=== PATIENT | male | born 1995 | race Caucasian/White ===

== ENCOUNTER 2022-10-27 16:04 | Observation (INO) ==
[2022-10-27 18:45] LABS: Basophils # 0.2 10*3/uL (0.0-0.2); Basophils % 1.6 % (0.0-0.8); Eosinophils # 0.2 10*3/uL (0.0-0.87); Eosinophils % 1.3 % (0.00-10.9); Hematocrit 45.4 VOL% (42.0-52.0); Hemoglobin 15.8 GM/DL (14.0-18.0); Immature Granulocytes % 0.4 %; Immature Granulocytes Absolute 0.05 #; Lymphocytes % 71.1 % (21.2-54.2); Mean Corpuscular HGB Conc 34.8 GM/DL (32-36); Mean Platelet Volume 9.1 FL (9.6-12.0); Monocytes # 0.9 10*3/uL (0.11-0.8); Monocytes % 6.5 % (1.7-12.7); Neutrophils % 19.1 % (38.7-73.9); Platelet Count 230 T/CUMM (130-400); Red Blood Count 5.47 MC/CUMM (3.8-5.5); Red Cell Distribution Width 12.5 % (9.3-17.3)
[2022-10-27] MEDS ORDERED: SODIUM CHLORIDE 0.9% 1,000 ML IV STA (18:52)
[2022-10-27] MEDS ORDERED: ONDANSETRON 4 MG/2 ML VIAL IV ONE (18:52)
[2022-10-27] MEDS ORDERED: DICYCLOMINE 20 MG/2 ML AMP IM ONE (18:53)
[2022-10-27 19:07] LABS: Alanine Aminotransferase 130 U/L (16-61); Albumin 3.8 G/DL (3.4-5.0); Alkaline Phosphatase 144 U/L (45-117); Aspartate Amino Transferase 63 U/L (0-37); Blood Urea Nitrogen 9 MG/DL (7-18); Calcium 9.2 MG/DL (8.5-10.1); Carbon Dioxide 30 MMOL/L (21-32); Chloride 100 MMOL/L (98-107); Glucose 96 MG/DL (74-106); Osmolality,Calculated 268.1 MOS/KG (273-304); Potassium 4.4 MMOL/L (3.5-5.1); Sodium 135 MMOL/L (136-145); Total Protein 7.3 G/DL (6.4-8.2)
[2022-10-27 19:44] LABS: Anisocytosis Slight; Eosinophils 1 % (0-10); Lymphocytes 65 % (20-55); Microcytosis Slight; Platelet Estimate Adequate; Reactive Lymphocytes Few; Total Cells Counted 100
[2022-10-27] MEDS ORDERED: MORPHINE 2 MG/1 ML SYRINGE IV PRN (20:13)
[2022-10-27] MEDS ORDERED: BISACODYL 5 MG TABLET PO PRN (20:13)
[2022-10-27] MEDS ORDERED: ONDANSETRON 4 MG/2 ML VIAL IV PRN (20:13)
[2022-10-27] MEDS ORDERED: NICOTINE 21 MG/24 HR PATCH TRANSDERM PRN (20:13)
[2022-10-27] MEDS ORDERED: DOCUSATE SODIUM 100 MG CAPSULE PO PRN (20:13)
[2022-10-27] MEDS ORDERED: hydrALAZINE 20 MG/1 ML VIAL IV PRN (20:37)
[2022-10-27] MEDS: SODIUM CHLORIDE 0.9% 1,000 ML IV SCH (22:30)
[2022-10-27] MEDS: PANTOPRAZOLE 40 MG VIAL IV SCH (22:46)
[2022-10-27] MEDS: MEROPENEM 500 MG in SODIUM CHLORIDE 0.9% 100 ML IV SCH (22:47)
[2022-10-28 01:38] LABS: Basophils # 0.2 10*3/uL (0.0-0.2); Basophils % 1.7 % (0.0-0.8); Eosinophils # 0.2 10*3/uL (0.0-0.87); Eosinophils % 1.6 % (0.00-10.9); Hematocrit 42.8 VOL% (42.0-52.0); Hemoglobin 14.9 GM/DL (14.0-18.0); Immature Granulocytes % 0.3 %; Immature Granulocytes Absolute 0.03 #; Lymphocytes # 7.1 10*3/uL (1.4-4.0); Lymphocytes % 68.2 % (21.2-54.2); Mean Corpuscular HGB Conc 34.8 GM/DL (32-36); Mean Corpuscular Volume 83.8 FL (87-102); Mean Platelet Volume 9.2 FL (9.6-12.0); Monocytes # 0.7 10*3/uL (0.11-0.8); Monocytes % 6.9 % (1.7-12.7); Neutrophils % 21.3 % (38.7-73.9); Platelet Count 213 T/CUMM (130-400); Red Blood Count 5.11 MC/CUMM (3.8-5.5); Red Cell Distribution Width 12.6 % (9.3-17.3); White Blood Count 10.4 T/CUMM (4-12)
[2022-10-28 01:47] LABS: Partial Thromboplastin Time 26.7 SECS (23.7-32.9)
[2022-10-28 01:54] LABS: Bilirubin,Direct 0.29 MG/DL (0.0-0.20); Bilirubin,Indirect 0.6 MG/DL (0.0-1.0); Bilirubin,Total 0.9 MG/DL (0.20-1.00)
[2022-10-28 01:56] LABS: Albumin 3.4 G/DL (3.4-5.0); Bilirubin,Total 0.8 MG/DL (0.20-1.00); Calcium 8.8 MG/DL (8.5-10.1); Potassium 3.9 MMOL/L (3.5-5.1); Total Protein 6.4 G/DL (6.4-8.2)
[2022-10-28] MEDS: MEROPENEM 500 MG in SODIUM CHLORIDE 0.9% 100 ML IV SCH ×2 (02:22→08:49)
[2022-10-28 02:32] LABS: Lymphocytes 69 % (20-55); Total Cells Counted 100
[2022-10-28 02:34] LABS: Anisocytosis Slight
[2022-10-28 02:35] LABS: Microcytosis Slight; Platelet Estimate Normal
[2022-10-28 02:36] LABS: Reactive Lymphocytes 1+
[2022-10-28] MEDS: SODIUM CHLORIDE 0.9% 1,000 ML IV SCH ×2 (05:38→11:03)
[2022-10-28 05:43] LABS: Hepatitis B Core IgM Quant 0.16 Index; Hepatitis B Surface Ag Quant < 0.10 Index; Hepatitis B Surface Ag Result Non-Reactive (NonReactive); Hepatitis C Virus Ab Quant 0.02 Index; Hepatitis C Virus Ab Result Non-Reactive (NonReactive)
[2022-10-28] MEDS: PANTOPRAZOLE 40 MG VIAL IV SCH (08:49)
[2022-10-28] MEDS: CETIRIZINE 10 MG TABLET PO SCH (17:06)
[2022-10-28] MEDS: OXcarbazepine 300 MG TABLET PO SCH (20:47)
[2022-10-28] MEDS: busPIRone 15 MG TABLET PO SCH (20:47)
[2022-10-28] MEDS: ACETAMINOPHEN 325 MG TABLET PO PRN (20:48)
[2022-10-29] MEDS: PANTOPRAZOLE 40 MG VIAL IV SCH (08:46)
[2022-10-29] MEDS: OXcarbazepine 300 MG TABLET PO SCH ×2 (08:47→20:05)
[2022-10-29] MEDS: busPIRone 15 MG TABLET PO SCH ×2 (08:48→20:04)
[2022-10-29] MEDS: CETIRIZINE 10 MG TABLET PO SCH (08:48)
[2022-10-29] MEDS: SODIUM CHLORIDE 0.9% 1,000 ML IV SCH ×3 (08:53→23:36)
[2022-10-29 09:12] LABS: Basophils # 0.2 10*3/uL (0.0-0.2); Basophils % 1.4 % (0.0-0.8); Eosinophils # 0.2 10*3/uL (0.0-0.87); Eosinophils % 1.4 % (0.00-10.9); Hematocrit 45.2 VOL% (42.0-52.0); Hemoglobin 15.4 GM/DL (14.0-18.0); Immature Granulocytes % 0.3 %; Immature Granulocytes Absolute 0.03 #; Lymphocytes # 8.9 10*3/uL (1.4-4.0); Lymphocytes % 75.5 % (21.2-54.2); Mean Corpuscular HGB Conc 34.1 GM/DL (32-36); Mean Corpuscular Volume 84.5 FL (87-102); Mean Platelet Volume 9.3 FL (9.6-12.0); Monocytes # 0.7 10*3/uL (0.11-0.8); Monocytes % 5.5 % (1.7-12.7); Neutrophils % 15.9 % (38.7-73.9); Platelet Count 232 T/CUMM (130-400); Red Blood Count 5.35 MC/CUMM (3.8-5.5); Red Cell Distribution Width 12.8 % (9.3-17.3); White Blood Count 11.8 T/CUMM (4-12)
[2022-10-29 09:30] LABS: Albumin 3.3 G/DL (3.4-5.0); Bilirubin,Total 0.8 MG/DL (0.20-1.00); Calcium 8.5 MG/DL (8.5-10.1); Osmolality,Calculated 275.5 MOS/KG (273-304); Potassium 4.7 MMOL/L (3.5-5.1); Total Protein 6.4 G/DL (6.4-8.2)
[2022-10-29 09:42] LABS: Eosinophils 1 % (0-10); Lymphocytes 64 % (20-55); Microcytosis Slight; Total Cells Counted 100
[2022-10-29 09:43] LABS: Atypical Lymphocytes Few; Platelet Estimate Normal
[2022-10-29] MEDS: ACETAMINOPHEN 325 MG TABLET PO PRN (19:19)
[2022-10-30 05:11] LABS: Basophils # 0.2 10*3/uL (0.0-0.2); Basophils % 1.5 % (0.0-0.8); Eosinophils # 0.2 10*3/uL (0.0-0.87); Eosinophils % 1.8 % (0.00-10.9); Hematocrit 42.6 VOL% (42.0-52.0); Hemoglobin 14.4 GM/DL (14.0-18.0); Immature Granulocytes % 0.2 %; Immature Granulocytes Absolute 0.02 #; Lymphocytes # 7.1 10*3/uL (1.4-4.0); Lymphocytes % 72.5 % (21.2-54.2); Mean Corpuscular HGB Conc 33.8 GM/DL (32-36); Mean Corpuscular Volume 85.9 FL (87-102); Mean Platelet Volume 9.2 FL (9.6-12.0); Monocytes # 0.6 10*3/uL (0.11-0.8); Monocytes % 5.8 % (1.7-12.7); Neutrophils % 18.2 % (38.7-73.9); Platelet Count 239 T/CUMM (130-400); Red Blood Count 4.96 MC/CUMM (3.8-5.5); Red Cell Distribution Width 12.9 % (9.3-17.3); White Blood Count 9.8 T/CUMM (4-12)
[2022-10-30 05:34] LABS: Albumin 3.2 G/DL (3.4-5.0); Bilirubin,Total 0.5 MG/DL (0.20-1.00); Calcium 8.3 MG/DL (8.5-10.1); Osmolality,Calculated 276.5 MOS/KG (273-304); Potassium 3.9 MMOL/L (3.5-5.1); Total Protein 5.6 G/DL (6.4-8.2)
[2022-10-30 05:41] LABS: Eosinophils 2 % (0-10); Lymphocytes 59 % (20-55); Platelet Estimate Normal; Total Cells Counted 100
[2022-10-30 05:42] LABS: Smudge Cells Few
[2022-10-30] MEDS: busPIRone 15 MG TABLET PO SCH (08:24)
[2022-10-30] MEDS: CETIRIZINE 10 MG TABLET PO SCH (08:24)
[2022-10-30] MEDS: OXcarbazepine 300 MG TABLET PO SCH (08:25)
[2022-10-30] MEDS: PANTOPRAZOLE 40 MG VIAL IV SCH (08:25)
[2022-10-30 12:16] VITALS: BP 120/72
[2022-10-31 13:11] LABS: Reason for Referral LYMPHOCYTOSIS; Specimen Source Peripheral blood
[2022-11-01 11:16] LABS: CMV PCR Source THROAT SWAB
== END 2022-10-30 12:31 | disposition home or self-care (01) ==
LOC: N.ED 16:04 → INTOOBSV 20:13 → N.EDINP 20:13 → N.2E 22:59
PROVIDERS: ADMIT Emergency Medicine; ATTEND Emergency Medicine